=== PATIENT | male | born 1970 | race Caucasian/White ===

== ENCOUNTER 2017-06-30 14:15 | Outpatient (RCR) | payer OTHER | END 2017-07-02 | disposition still patient (30) | LOC: COL.CR | DX: I21.4 Non-ST elevation (NSTEMI) myocardial infarction (principal); Z95.5 Presence of coronary angioplasty implant and graft; I25.119 Atherosclerotic heart disease of native coronary artery with unspecified angina pectoris ==

== ENCOUNTER 2017-07-26 14:11 | Outpatient (RCR) | payer OTHER | END 2017-08-14 08:39 | disposition home or self-care (01) | LOC: COL.CR 14:11 | DX: Z48.812 Encounter for surgical aftercare following surgery on the circulatory system (principal); Z95.5 Presence of coronary angioplasty implant and graft; I25.2 Old myocardial infarction ==